=== PATIENT | female | born 1980 | race Caucasian/White ===

== ENCOUNTER 2016-12-11 14:30 | Emergency (ER) | payer OTHER ==
--- NOTE | 2016-12-11 16:52 | ED ORDER SUMMARY ---
..... Patient: ALICIA HERBERT I OrderSheet [facility] VisitID: [id number] [place] [address] 36y, F Registration Date/Time: 12/11/2016 ORDER SHEET Weight: 108.8 kg (stated) Allergies: Codeine, Metronidazole GENERAL ORDERS: UA-Culture if indicated Urgent (14:51 12/11/2016 JBoardley R.N. per protocol) (Ack 14:53 KHoerner) (14:58 JBoardley R.N.) Urine Urgent (14:51 12/11/2016 JBoardley R.N. per protocol) (Ack 14:53 KHoerner) (14:58 JBoardley R.N.) Wet Prep (Cervix) (cervix) Urgent (15:13 12/11/2016 HBivens A.R.N.P.) (Ack 15:15 KHoerner) (15:16 KWilliams R.N.) CBC w Diff Urgent (15:13 12/11/2016 HBivens A.R.N.P.) (Ack 15:15 KHoerner) (15:22 JBoardley R.N.) CMP Urgent (15:13 12/11/2016 HBivens A.R.N.P.) (Ack 15:15 KHoerner) (15:22 JBoardley R.N.) Amylase Urgent (15:13 12/11/2016 HBivens A.R.N.P.) (Ack 15:15 KHoerner) (15:22 JBoardley R.N.) Lipase Urgent (15:13 12/11/2016 HBivens A.R.N.P.) (Ack 15:15 KHoerner) (15:22 JBoardley R.N.) MEDICATION ORDERS: IV FLUIDS: IV Saline Lock (15:13 12/11/2016 HBivens A.R.N.P.) (Ack 15:14 JBoardley R.N.) (15:22 JBoardley R.N.) ORDER SHEET NOTES: [Electronically signed by Mickey Rey R.N. (19:12/11/2016)] [Electronically signed by Sarai Finnegan (:12/11/2016)] [Electronically locked/signed by Mickey Rey R.N. (:12/11/2016)]
--- NOTE | 2016-12-11 16:52 | ED NURSING NOTES ---
Clinical Report - Nurses [facility] [address] [place] [address] 12/11/2016 14:30 [id number] TRI[facility] Triage time 14:47. Acuity: LEVEL 3. Chief Complaint: FLANK PAIN. 14:47 12/11/16. 14:47 12/11/16. Alert. No acute distress. SEPSIS SCREEN: Sepsis Screen. Negative (no infection suspected/documented). AHMET COMA SCORE: [place] Coma Scale: 15- eyes open spontaneously (4); best verbal response- oriented x 4 (5); best motor response- obeys commands (6). --14:53 Mickey Rey R.N. 14:51 12/11/16. BP: 143/83. HR: 99. RR: 18. O2 saturation: 100% on room air. Temp: 97.9 F (oral). Pain level now: 12/09. --14:53 Mickey Rey R.N. ( Flank pain that started 3 days ago. Pain is greater on the right flank but also in the left flank.). --14:54 Mickey Rey R.N. Weight: 108.8 kg stated. Height/Length: 65 inches Per Patient. BMI: 40. --14:48 Mickey Rey R.N. Medications None. --14:50 Mickey Rey R.N. Medication/allergy information source: the patient. --14:53 Mickey Rey R.N. Allergies Codeine.(nausea) Metronidazole.(Anaphylaxis) --14:50 Mickey Rey R.N. History Arrived by private vehicle. Historian: patient. Accompanied by family. Primary physician ([facility]). 14:47 12/11/16. ( 3 days ago). 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 PAST MEDICAL HX: Immunizations: up-to-date. Last normal menstrual period- " I do not have one, I had an ablation completed". SOCIAL HX: Current every day light tobacco smoker (cigarette)- less than 1/2 a pack per day. Occasional alcohol use. No drug use. No recent travel. No infectious disease exposure. No known contact with a sick individual. FALL RISK ASSESSMENT: Fall risk assessment completed. No fall risk identified. NUTRITIONAL RISK ASSESSMENT: The nutritional risk assessment revealed no deficiencies. FUNCTIONAL ASSESSMENT: Functional assessment: no impairments noted. LEARNING NEEDS ASSESSMENT: The learning needs assessment revealed no barriers. SKIN INTEGRITY ASSESSMENT: Skin integrity risk assessment completed. No skin integrity risk identified. --14:53 Mickey Rey R.N. PROBLEMS: Hypertension. Dental Pain. Nausea. Hyperlipidemia. Hypercholesterolemia. Immunizations. LNMP - Last Normal Menstrual Period. Polycystic Ovary Disease. Chronic Back Pain. --14:50 Mickey Rey R.N. ADDITIONAL SURGERIES: . --14:50 Mickey Rey R.N. Assessment 14:47 12/11/16. --14:53 Mickey Rey R.N. Interventions 14:47 12/11/16. 14:47 12/11/16. ID and allergy band on patient. To treatment room. --14:53 Mickey Rey R.N. PHYSICAL ASSESSMENT 14:49 12/11/16. Ambulatory to room. GENERAL / NEURO / PSYCH: Alert. Oriented X 4. Appears in no acute distress. RESPIRATORY: Respirations not labored. CVS: Capillary refill less than 2 seconds. SKIN: Skin is warm and dry. --14:49 Mickey Rey R.N. NURSING PROGRESS NOTES 14:49 12/11/16. The plan of care for this patient has been created. Patient gowned. Head of bed elevated. Reassurance given. Two patient identifiers checked. Call light placed in reach. Side rails up x 2. Bed placed in lowest position. Brakes of bed on. --14:49 Mickey Rey R.N. PELVIC EXAM: Pelvic exam performed by NATIONAL VAN OWNER OPERATOR. Assisted by one nurse. Preparation: pelvic tray; patient placed in lithotomy position. Procedure: speculum and bimanual exam. Specimens collected and sent to lab: wet prep. No vaginal discharge noted. No vaginal bleeding noted. Status post-procedure: she was stable. Total time of assist / procedure: 15 minutes. --15:15 Oleg Mckenzie R.N. 15:17 12/11/2016 Site #1 started via IV in the right antecubital space with an 20g angiocath, with aseptic technique and good blood return; one attempt. Blood drawn: rainbow set. Labeled in the presence of the patient and sent to the lab. Saline lock flushed with 10 mL saline. --15:22 Mickey Rey R.N. 15:36 12/11/16. Patient informed about reason for wait and about plan of care. Patient waiting for lab results. --15:36 Mickey Rey R.N. 15:36 12/11/16. BP: 134/82. HR: 88. RR: 14. O2 saturation: 100%. --15:37 Mickey Rey R.N. 15:37 12/11/16. --15:37 Mickey Rey R.N. 17:07 12/11/2016 Site #1 removed upon discharge. Bandaid applied. --17:07 Tanisha Chou R.N. DISPOSITION / DISCHARGE Departure time: 17:Dec 11 2016. Condition at departure: stable. The goals identified in the patient's plan of care were met. No learning barriers present. Discharge instructions provided and reviewed with the patient. Reviewed medication(s) information. Prescription(s) given to the patient. Patient verbalized understanding. Written instructions provided in British. The patient was discharged by the nurse practitioner. She was discharged home and accompanied by family. She left the Emergency Department ambulatory and via private vehicle. ( pt dc only by this RN, iv d/c'd intact. pt ambulated to lobby with steady gait.). --17:06 Tanisha Chou R.N. 17:05 12/11/16. BP: 133/71. HR: 82. RR: 17. O2 saturation: 100%. Temp: 98.0 F. Pain level now 5/10. --17:06 Tanisha Chou R.N. Locked/Released at 12/11/2016 19:00 by Mickey Rey R.N.
--- NOTE | 2016-12-11 16:52 | ED CLINICAL REPORT ---
Clinical Report - Physicians/Mid Levels [facility] [address] [place] [address] 12/11/2016 14:30 Patient: ALICIA HERBERT I Time Seen: 14:54; initial patient contact, initial documentation, patient care assumed. Arrived- By private vehicle. Historian- patient. HISTORY OF PRESENT ILLNESS Chief Complaint: FLANK PAIN. It is described as "pain", sharp, stabbing and cramping. No radiation. It is described as located in the right flank and the left flank. At its maximum, severity described as moderate. When seen in the E.D., severity described as moderate. Modifying factors. Not worsened by anything. Not relieved by anything. This started about 3 days ago and is still present. It was abrupt in onset and has been constant. No nausea, loss of appetite, vomiting or diarrhea. No additional abdominal pain. No recent travel. Similar symptoms previously: Occasionally, as bad. ( feels like bladder or kidney pain where there is an infection). Recent medical care: Not recently seen/assessed. REVIEW OF SYSTEMS No constipation, black stools, hematemesis, difficulty with urination or pain with urination. No urinary frequency, bloody stools, fever, chest pain or difficulty breathing. She has missed periods. Denies current . c/o some vaginal dc, more than her normal, doens't know the color, maybe white. All systems otherwise negative, except as recorded above. PAST HISTORY See nurses notes. PROBLEMS: Hypertension. Dental Pain. Nausea. Hyperlipidemia. Hypercholesterolemia. Immunizations. LNMP - Last Normal Menstrual Period. Polycystic Ovary Disease. Chronic Back Pain. --14:50 Mickey Rey R.N. ADDITIONAL SURGERIES: . --14:50 Mickey Rye R.N. SOCIAL HISTORY Light tobacco smoker. Occasional alcohol use. No drug use. No recent travel. Is a local resident. FAMILY HISTORY Negative. ADDITIONAL NOTES The nursing notes have been reviewed with agreement regarding the chief complaint, HPI, ROS, PMH and patient medications and allergies. PHYSICAL EXAM Vital Signs: 12/11/2016 14:52 BP: 143/83. HR: 99. RR: 18. O2 saturation: 100%. Temp: 97.9 F. Pain level now: 10. Have been reviewed as normal and appear to be correct. Appearance: Alert. Oriented X3. No acute distress. Eyes: Pupils equal, round and reactive to light. Eyes normal inspection. Neck: Normal inspection. Neck supple. CVS: Normal heart rate and rhythm. Heart sounds normal. Pulses normal. Respiratory: No respiratory distress. Breath sounds normal. Chest nontender. Abdomen: Soft and nontender. Bowel sounds normal. No organomegaly. No mass. Mildly obese. Back: Normal inspection. : Normal external exam. Speculum exam normal. Bimanual exam normal. (BARRY Luo as environmental research project manager). Skin: Skin warm and dry. Normal skin color. No rash. Normal skin turgor. Extremities: Extremities exhibit normal ROM. No lower extremity edema. Neuro: Oriented X 3. No motor deficit. No sensory deficit. LABS, X-RAYS, AND EKG Laboratory Tests: UA-Culture if indicated: (SVITLANA: 12/11/2016 14:45) ( [facility] [place]11[facility] 15:20) Final results Test Result Flag Units (Reference) URINE COLOR STRAW URINE APPEARANCE CLEAR URINE GLUCOSE NEGATIVE (NEGATIVE) URINE BILIRUBIN NEGATIVE (NEGATIVE) URINE KETONE NEGATIVE (NEGATIVE) URINE SPECIFIC GRAVITY <= 1.005 L (1.010-1.030) URINE PH 5.5 (5.0-8.0) URINE PROTEIN NEGATIVE (NEGATIVE) URINE UROBILINOGEN 0.2 EU/dL (0.2-1.0) URINE NITRITE NEGATIVE (NEGATIVE) URINE BLOOD NEGATIVE (NEGATIVE) URINE LEUK ESTERASE NEGATIVE (NEGATIVE) URINE RBC NONE SEEN rbc/hpf (0-1) URINE WBC NONE SEEN wbc/hpf (0-1) URINE EPITHELIAL CELLS 1-3 EPI/hpf (0-5) URINE BACTERIA NONE SEEN (NONE SEEN) URINE COMMENT CULT NOT INDICATED URINE CULTURES ARE SET-UP BASED ON THE FOLLOWING CRITERIA:POSITIVE NITRITEPOSITIVE LEUKOCYTE ESTERASEGREATER THAN 10 WHITE BLOOD CELLSMODERATE (2+) OR GREATER BACTERIA Urine: (SVITLANA: 12/11/2016 14:45) ( MsgRcvd 12/11/2016 15:00) Final results Test Result Flag Units (Reference) URINE NEGATIVE CBC w Diff: (SVITLANA: 12/11/2016 15:15) ( MsgRcvd 12/11/2016 15:40) Final results Test Result Flag Units (Reference) WHITE BLOOD COUNT 10.9 K/uL (4.5-11.5) RED BLOOD COUNT 4.50 M/uL (4.00-5.20) HEMOGLOBIN 14.8 gm/dL (12.0-16.0) HEMATOCRIT 43.1 % (36.0-46.0) MEAN CELL VOLUME 96 fL (80-100) MEAN CORPUSCULAR HGB 33 pg (26-34) MEAN CORPUSCULAR HGB CONC 34 g/dL (31-37) RED CELL DISTRIBUTION WIDTH 13.1 % (11.6-14.8) PLATELET COUNT 316 K/uL (150-400) NEUTROPHIL % 65.6 % (50-75) LYMPH % 27.3 % (25-40) MONO % 5.2 % (3-14) EOSINOPHIL % 1.5 % (0-4) BASOPHIL % 0.4 % (0-2) CMP: (SVITLANA: 12/11/2016 15:15) ( MsgRcvd 12/11/2016 15:53) Final results Test Result Flag Units (Reference) GLUCOSE 94 mg/dL (70-110) BUN 10 mg/dL (7-18) CREATININE 0.8 mg/dL (0.6-1.3) Estimated GFR >60 mL/min Estimated GFR- >60 mL/min Note: Persistent reduction over 3 months in eGFR<60 mL/min/1.73 m2 defines CKD. Patients with eGFR values>=60 mL/min/1.73 m2 may also have CKD if evidence ofpersistent proteinuria. Additional information may be foundat www.kidney.org. SODIUM 139 mmol/L (136-145) POTASSIUM 3.8 mmol/L (3.5-5.1) CHLORIDE 102 mmol/L (98-107) CARBON DIOXIDE 26 mmol/L (21-32) CALCIUM 9.3 mg/dL (8.5-10.1) TOTAL PROTEIN 7.8 g/dL (6.4-8.2) ALBUMIN 3.9 g/dL (3.3-5.0) BILIRUBIN, TOTAL 0.4 mg/dL (0.0-1.0) ALKALINE PHOSPHATASE 74 U/L (46-116) AST (SGOT) 24 U/L (15-37) ALT (SGPT) 54 U/L (12-78) LIPASE 127 U/L (73-393) AMYLASE 45 U/L (25-115) Wet Prep: (SVITLANA: 12/11/2016 15:11) ( MsgRcvd 12/11/2016 16:07) Final results SPECIMEN DESCRIPTION: CERVIX Test Result Flag Units (Reference) WET MOUNT CLUE CELLS:: FEW * EPITHELIAL CELLS: FEW -- SOURCE?: CERVIX WHITE BLOOD CELLS: FEW TRICHOMONAS:: NONE -- YEAST:: NONE . PROGRESS AND PROCEDURES Patient counseled in person regarding the patient's stable condition, test results and diagnosis. 16:46. Differential Diagnosis: I considered diverticulitis, colon cancer, obstipation, urinary tract infection, cystitis, ureterolithiasis, ovarian cyst, ovarian torsion, , ectopic , pelvic inflammatory disease, pelvic abscess, endometriosis and viral syndrome as a possible cause of abdominal pain in this patient. This is a partial list of diagnoses considered. Above considerations are based on history, physical exam and laboratory data. Differential diagnosis was discussed with patient. Disposition: Discharged home in good and improved condition (16:51). Condition: good and stable. CLINICAL IMPRESSION Acute mild bacterial vaginitis INSTRUCTIONS Warnings: GENERAL WARNINGS: Return or contact your physician immediately if your condition worsens or changes unexpectedly, if not improving as expected, or if other problems arise. SPECIFICALLY, return if you develop pain in the abdomen or pelvis, fever, the inability to keep fluids down, blood in vomitus, blood in diarrhea, fainting, lightheadedness or vaginal bleeding. Prescription Medications: Ultram 50 mg tablets: take 1-2 orally every 6 hours as needed for pain. Dispense twenty (20). No refills. Substitution is permissible. Doxycycline 100 mg: Take 1 capsule orally every 12 hours for 10 days. No refill. Follow-up: Follow up with your doctor in about three days even if well. Summary of care provided to patient. Understanding of the discharge instructions verbalized. (Electronically signed by Sarai Finnegan A.R.N.P. 12/11/2016 22:00)
--- NOTE | 2016-12-11 16:52 | ED NURSING NOTES ---
Clinical Report - Nurses [facility] [address] [place] [address] 12/11/2016 14:30 [id number] Triage time 14:47. Acuity: LEVEL 3. Chief Complaint: FLANK PAIN. 14:47 12/11/16. 14:47 12/11/16. Alert. No acute distress. SEPSIS SCREEN: Sepsis Screen. Negative (no infection suspected/documented). AHMET COMA SCORE: [place] Coma Scale: 15- eyes open spontaneously (4); best verbal response- oriented x 4 (5); best motor response- obeys commands (6). --14:53 Mickey Rey R.N. 14:51 12/11/16. BP: 143/83. HR: 99. RR: 18. O2 saturation: 100% on room air. Temp: 97.9 F (oral). Pain level now: 12/09. --14:53 Mickey Rey R.N. ( Flank pain that started 3 days ago. Pain is greater on the right flank but also in the left flank.). --14:54 Mickey Rey R.N. Weight: 108.8 kg stated. Height/Length: 65 inches Per Patient. BMI: 40. --14:48 Mickey Rey R.N. Medications None. --14:50 Mickey Rey R.N. Medication/allergy information source: the patient. --14:53 Mickey Rey R.N. Allergies Codeine.(nausea) Metronidazole.(Anaphylaxis) --14:50 Mickey Rey R.N. History Arrived by private vehicle. Historian: patient. Accompanied by family. Primary physician ([facility] [place]). 14:47 12/11/16. ( 3 days ago). 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 PAST MEDICAL HX: Immunizations: up-to-date. Last normal menstrual period- " I do not have one, I had an ablation completed". SOCIAL HX: Current every day light tobacco smoker (cigarette)- less than 1/2 a pack per day. Occasional alcohol use. No drug use. No recent travel. No infectious disease exposure. No known contact with a sick individual. FALL RISK ASSESSMENT: Fall risk assessment completed. No fall risk identified. NUTRITIONAL RISK ASSESSMENT: The nutritional risk assessment revealed no deficiencies. FUNCTIONAL ASSESSMENT: Functional assessment: no impairments noted. LEARNING NEEDS ASSESSMENT: The learning needs assessment revealed no barriers. SKIN INTEGRITY ASSESSMENT: Skin integrity risk assessment completed. No skin integrity risk identified. --14:53 Mickey Rey R.N. PROBLEMS: Hypertension. Dental Pain. Nausea. Hyperlipidemia. Hypercholesterolemia. Immunizations. LNMP - Last Normal Menstrual Period. Polycystic Ovary Disease. Chronic Back Pain. --14:50 Mickey Rey R.N. ADDITIONAL SURGERIES: . --14:50 Mickey Rey R.N. Assessment 14:47 12/11/16. --14:53 Mickey Rey R.N. Interventions 14:47 12/11/16. 14:47 12/11/16. ID and allergy band on patient. To treatment room. --14:53 Mickey Rey R.N. PHYSICAL ASSESSMENT 14:49 12/11/16. Ambulatory to room. GENERAL / NEURO / PSYCH: Alert. Oriented X 4. Appears in no acute distress. RESPIRATORY: Respirations not labored. CVS: Capillary refill less than 2 seconds. SKIN: Skin is warm and dry. --14:49 Mickey Rey R.N. NURSING PROGRESS NOTES 14:49 12/11/16. The plan of care for this patient has been created. Patient gowned. Head of bed elevated. Reassurance given. Two patient identifiers checked. Call light placed in reach. Side rails up x 2. Bed placed in lowest position. Brakes of bed on. --14:49 Mickey Rey R.N. PELVIC EXAM: Pelvic exam performed by FINANCIAL UNDERWRITER. Assisted by one nurse. Preparation: pelvic tray; patient placed in lithotomy position. Procedure: speculum and bimanual exam. Specimens collected and sent to lab: wet prep. No vaginal discharge noted. No vaginal bleeding noted. Status post-procedure: she was stable. Total time of assist / procedure: 15 minutes. --15:15 Oleg Mckenzie R.N. 15:17 12/11/2016 Site #1 started via IV in the right antecubital space with an 20g angiocath, with aseptic technique and good blood return; one attempt. Blood drawn: rainbow set. Labeled in the presence of the patient and sent to the lab. Saline lock flushed with 10 mL saline. --15:22 Mickey Rey R.N. 15:36 12/11/16. Patient informed about reason for wait and about plan of care. Patient waiting for lab results. --15:36 Mickey Rey R.N. 15:36 12/11/16. BP: 134/82. HR: 88. RR: 14. O2 saturation: 100%. --15:37 Mickey Rey R.N. 15:37 12/11/16. --15:37 Mickey Rey R.N. 17:07 12/11/2016 Site #1 removed upon discharge. Bandaid applied. --17:07 Tanisha Chou R.N. DISPOSITION / DISCHARGE Departure time: 17:Dec 11 2016. Condition at departure: stable. The goals identified in the patient's plan of care were met. No learning barriers present. Discharge instructions provided and reviewed with the patient. Reviewed medication(s) information. Prescription(s) given to the patient. Patient verbalized understanding. Written instructions provided in Palestinian. The patient was discharged by the nurse practitioner. She was discharged home and accompanied by family. She left the Emergency Department ambulatory and via private vehicle. ( pt dc only by this RN, iv d/c'd intact. pt ambulated to lobby with steady gait.). --17:06 Tanisha Chou R.N. 17:05 12/11/16. BP: 133/71. HR: 82. RR: 17. O2 saturation: 100%. Temp: 98.0 F. Pain level now 5/10. --17:06 Tanisha Chou R.N. Locked/Released at 12/11/2016 19:00 by Mickey Rey R.N.
--- NOTE | 2016-12-11 16:52 | ED ORDER SUMMARY ---
..... Patient: ALICIA HERBERT I OrderSheet [facility] VisitID: [id number] [place] [address] 36y, F Registration Date/Time: 12/11/2016 ORDER SHEET Weight: 108.8 kg (stated) Allergies: Codeine, Metronidazole GENERAL ORDERS: UA-Culture if indicated Urgent (14:51 12/11/2016 JBoardley R.N. per protocol) (Ack 14:53 KHoerner) (14:58 JBoardley R.N.) Urine Urgent (14:51 12/11/2016 JBoardley R.N. per protocol) (Ack 14:53 KHoerner) (14:58 JBoardley R.N.) Wet Prep (Cervix) (cervix) Urgent (15:13 12/11/2016 HBivens A.R.N.P.) (Ack 15:15 KHoerner) (15:16 KWilliams R.N.) CBC w Diff Urgent (15:13 12/11/2016 HBivens A.R.N.P.) (Ack 15:15 KHoerner) (15:22 JBoardley R.N.) CMP Urgent (15:13 12/11/2016 HBivens A.R.N.P.) (Ack 15:15 KHoerner) (15:22 JBoardley R.N.) Amylase Urgent (15:13 12/11/2016 HBivens A.R.N.P.) (Ack 15:15 KHoerner) (15:22 JBoardley R.N.) Lipase Urgent (15:13 12/11/2016 HBivens A.R.N.P.) (Ack 15:15 KHoerner) (15:22 JBoardley R.N.) MEDICATION ORDERS: IV FLUIDS: IV Saline Lock (15:13 12/11/2016 HBivens A.R.N.P.) (Ack 15:14 JBoardley R.N.) (15:22 JBoardley R.N.) ORDER SHEET NOTES: [Electronically signed by Mickey Rey R.N. (19:12/11/2016)] [Electronically signed by Sarai Finnegan (:12/11/2016)] [Electronically locked/signed by Mickey Rey R.N. (:12/11/2016)]
--- NOTE | 2016-12-11 22:00 | ED MED RECONCILIATION SUMMARY ---
Patient: ALICIA HERBERT I Medication Reconciliation Report [facility] VisitID: [id number] [address] [place] [address] 36y, F Registration Date/Time: 12/11/2016 Weight: 108.8 kg Height/Length: 65 in. BMI: 40.0 ALLERGIES: Codeine, Metronidazole The patient's Home Medications are listed below: NONE. The source(s) of the original Home Medication information: patient The following Medications were given to the patient in the Emergency Department: None. The following Medications were prescribed to the patient: Ultram 50 mg tablets: take 1-2 orally every 6 hours as needed for pain. Dispense twenty (20). No refills. Substitution is permissible. -- Sarai Finnegan, Sloane.R.N.P. Doxycycline 100 mg: Take 1 capsule orally every 12 hours for 10 days. No refill. -- Sarai Finnegan A.R.N.P.
--- NOTE | 2016-12-11 22:00 | ED MAR SUMMARY ---
..... Medication Administration Record Located Within [facility] [address] [place], [place] [id number] Patient: ALICIA HERBERT I Visit ID: [id number] 36y, F Weight: 108.8 kg Height/Length: 65 in BMI: 40 ALLERGIES: Codeine, Metronidazole
--- NOTE | 2016-12-11 22:00 | ED MAR SUMMARY ---
..... Medication Administration Record [facility] [address] [place], [place] [id number] Patient: ALICIA HERBERT I Visit ID: [id number] 36y, F Weight: 108.8 kg Height/Length: 65 in BMI: 40 ALLERGIES: Codeine, Metronidazole
--- NOTE | 2016-12-11 22:00 | ED MED RECONCILIATION SUMMARY ---
Patient: ALICIA HERBERT I Medication Reconciliation Report [facility] VisitID: [id number] [address] [place] [address] 36y, F Registration Date/Time: 12/11/2016 Weight: 108.8 kg Height/Length: 65 in. BMI: 40.0 ALLERGIES: Codeine, Metronidazole The patient's Home Medications are listed below: NONE. The source(s) of the original Home Medication information: patient The following Medications were given to the patient in the Emergency Department: None. The following Medications were prescribed to the patient: Ultram 50 mg tablets: take 1-2 orally every 6 hours as needed for pain. Dispense twenty (20). No refills. Substitution is permissible. -- Sarai Finnegan, Sloane.R.N.P. Doxycycline 100 mg: Take 1 capsule orally every 12 hours for 10 days. No refill. -- Sarai Finnegan A.R.N.P.
--- NOTE | 2016-12-11 22:00 | ED DISCHARGE INSTRUCTIONS ---
Patient: ALICIA HERBERT I General Instructions [facility] VisitID: [id number] [place] [address] 36y, F Registration Date/Time: 12/11/2016 Acute mild bacterial vaginitis INSTRUCTIONS Warnings: GENERAL WARNINGS: Return or contact your physician immediately if your condition worsens or changes unexpectedly, if not improving as expected, or if other problems arise. SPECIFICALLY, return if you develop pain in the abdomen or pelvis, fever, the inability to keep fluids down, blood in vomitus, blood in diarrhea, fainting, lightheadedness or vaginal bleeding. Prescription Medications: Ultram 50 mg tablets: take 1-2 orally every 6 hours as needed for pain. Dispense twenty (20). No refills. Substitution is permissible. Doxycycline 100 mg: Take 1 capsule orally every 12 hours for 10 days. No refill. Follow-up: Follow up with your doctor in about three days even if well. Summary of care provided to patient. Understanding of the discharge instructions verbalized. ADDITIONAL INFORMATION Bacterial Vaginosis You have a bacterial infection of the vagina called bacterial vaginosis (BV). It may also be called gardnerella or non-specific vaginitis. BV occurs when the "bad" bacteria outnumber the "good" bacteria that are normally present in the vagina. Symptoms include foul-smelling vaginal discharge (most noticeable after vaginal intercourse). There may also be burning with urination. The burning is caused as the urine passes over the inflamed outer vaginal area. The cause of bacterial vaginosis is not certain. However, your risk is higher if you recently began a new sexual relationship, or have had many sex partners in the past. Your risk is also higher if you douche often. While bacterial vaginosis most often occurs only in sexually active women, this is not a true sexually transmitted disease. You did not get this from your partner. You cannot give it to your partner. The infection may be related to temporary changes in the pH of vaginal fluids after being exposed to semen. Home Care: Keep the genital area clean and free of discharge. Do this by wearing an absorbent sanitary pad and changing it often. Shower daily. When you shower, clean the outer vaginal area with plain soap and water. Do not douche during treatment unless advised to do so by your doctor. Routine douching after treatment is no longer recommended to clean the vagina. It raises your risk of vaginal infection and pelvic inflammatory disease. Avoid having sex until you have finished all antibiotic medicine and all symptoms have gone away. Wear cotton underwear or cotton-lined panty hose. Dont wear pants that are too tight. Limiting the number of sex partners you have lowers your risk of this and other vaginal infections, STDs, and HIV. Take all medicine as directed until it is gone, even if you are feeling better. If you dont do this, symptoms might return. Follow Up with your doctor if symptoms dont go away after the medicine is finished. Get Prompt Medical Attention if any of the following occur: Fever of 100.4F (38C) or higher, or as directed by your healthcare provider Lower abdominal pain Rash or joint pain Painful sores around the outer vaginal area or on your partners penis Tramadol Hydrochloride Oral tablet What is this medicine? TRAMADOL (TRA ma dole) is a pain reliever. It is used to treat moderate to severe pain in adults. How should I use this medicine? Take this medicine by mouth with a full glass of water. Follow the directions on the prescription label. If the medicine upsets your stomach, take it with food or milk. Do not take more medicine than you are told to take. Talk to your utility forester regarding the use of this medicine in children. Special care may be needed. What side effects may I notice from receiving this medicine? Side effects that you should report to your doctor or health health careers instructor as soon as possible: allergic reactions like skin rash, itching or hives, swelling of the face, lips, or tongue breathing difficulties, wheezing confusion itching light headedness or fainting spells redness, blistering, peeling or loosening of the skin, including inside the mouth seizures Side effects that usually do not require medical attention (report to your doctor or health health careers instructor if they continue or are bothersome): constipation dizziness drowsiness headache nausea, vomiting What may interact with this medicine? Do not take this medicine with any of the following medications: MAOIs like Carbex, Eldepryl, Marplan, Nardil, and Parnate This medicine may also interact with the following medications: alcohol or medicines that contain alcohol antihistamines benzodiazepines bupropion carbamazepine or oxcarbazepine clozapine cyclobenzaprine digoxin furazolidone linezolid medicines for depression, anxiety, or psychotic disturbances medicines for migraine headache like almotriptan, eletriptan, frovatriptan, naratriptan, rizatriptan, sumatriptan, zolmitriptan medicines for pain like pentazocine, buprenorphine, butorphanol, meperidine, nalbuphine, and propoxyphene medicines for sleep muscle relaxants naltrexone phenobarbital phenothiazines like perphenazine, thioridazine, chlorpromazine, mesoridazine, fluphenazine, prochlorperazine, promazine, and trifluoperazine procarbazine warfarin What if I miss a dose? If you miss a dose, take it as soon as you can. If it is almost time for your next dose, take only that dose. Do not take double or extra doses. Where should I keep my medicine? Keep out of the reach of children. Store at room temperature between 15 and 30 degrees C (59 and 86 degrees F). Keep container tightly closed. Throw away any unused medicine after the expiration date. What should I tell my health care provider before I take this medicine? They need to know if you have any of these conditions: brain tumor depression drug abuse or addiction head injury if you frequently drink alcohol containing drinks kidney disease or trouble passing urine liver disease lung disease, asthma, or breathing problems seizures or epilepsy suicidal thoughts, plans, or attempt; a previous suicide attempt by you or a family member an unusual or allergic reaction to tramadol, codeine, other medicines, foods, dyes, or preservatives or trying to get breast-feeding What should I watch for while using this medicine? Tell your doctor or health health careers instructor if your pain does not go away, if it gets worse, or if you have new or a different type of pain. You may develop tolerance to the medicine. Tolerance means that you will need a higher dose of the medicine for pain relief. Tolerance is normal and is expected if you take this medicine for a long time. Do not suddenly stop taking your medicine because you may develop a severe reaction. Your body becomes used to the medicine. This does NOT mean you are addicted. Addiction is a behavior related to getting and using a drug for a non-medical reason. If you have pain, you have a medical reason to take pain medicine. Your doctor will tell you how much medicine to take. If your doctor wants you to stop the medicine, the dose will be slowly lowered over time to avoid any side effects. You may get drowsy or dizzy. Do not drive, use machinery, or do anything that needs mental alertness until you know how this medicine affects you. Do not stand or sit up quickly, especially if you are an older patient. This reduces the risk of dizzy or fainting spells. Alcohol can increase or decrease the effects of this medicine. Avoid alcoholic drinks. You may have constipation. Try to have a bowel movement at least every 2 to 3 days. If you do not have a bowel movement for 3 days, call your doctor or health health careers instructor. Your mouth may get dry. Chewing sugarless gum or sucking hard candy, and drinking plenty of water may help. Contact your doctor if the problem does not go away or is severe. Doxycycline Monohydrate Oral tablet What is this medicine? DOXYCYCLINE (dox maye zheng) is a tetracycline antibiotic. It kills certain bacteria or stops their growth. It is used to treat many kinds of infections, like dental, skin, respiratory, and urinary tract infections. It also treats acne, Lyme disease, malaria, and certain sexually transmitted infections. How should I use this medicine? Take this medicine by mouth with a full glass of water. Follow the directions on the prescription label. It is best to take this medicine without food, but if it upsets your stomach take it with food. Take your medicine at regular intervals. Do not take your medicine more often than directed. Take all of your medicine as directed even if you think you are better. Do not skip doses or stop your medicine early. Talk to your utility forester regarding the use of this medicine in children. Special care may be needed. While this drug may be prescribed for children as young as 8 years old for selected conditions, precautions do apply. What side effects may I notice from receiving this medicine? Side effects that you should report to your doctor or health health careers instructor as soon as possible: allergic reactions like skin rash, itching or hives, swelling of the face, lips, or tongue difficulty breathing fever itching in the rectal or genital area pain on swallowing redness, blistering, peeling or loosening of the skin, including inside the mouth severe stomach pain or cramps unusual bleeding or bruising unusually weak or tired yellowing of the eyes or skin Side effects that usually do not require medical attention (report to your doctor or health health careers instructor if they continue or are bothersome): diarrhea loss of appetite nausea, vomiting What may interact with this medicine? antacids barbiturates control pills bismuth subsalicylate carbamazepine methoxyflurane other antibiotics phenytoin vitamins that contain iron warfarin What if I miss a dose? If you miss a dose, take it as soon as you can. If it is almost time for your next dose, take only that dose. Do not take double or extra doses. Where should I keep my medicine? Keep out of the reach of children. Store at room temperature, below 30 degrees C (86 degrees F). Protect from light. Keep container tightly closed. Throw away any unused medicine after the expiration date. Taking this medicine after the expiration date can make you seriously ill. What should I tell my health care provider before I take this medicine? They need to know if you have any of these conditions: liver disease long exposure to sunlight like working outdoors stomach problems like colitis an unusual or allergic reaction to doxycycline, tetracycline antibiotics, other medicines, foods, dyes, or preservatives or trying to get breast-feeding What should I watch for while using this medicine? Tell your doctor or health health careers instructor if your symptoms do not improve. Do not treat diarrhea with over the counter products. Contact your doctor if you have diarrhea that lasts more than 2 days or if it is severe and watery. Do not take this medicine just before going to bed. It may not dissolve properly when you lay down and can cause pain in your throat. Drink plenty of fluids while taking this medicine to also help reduce irritation in your throat. This medicine can make you more sensitive to the sun. Keep out of the sun. If you cannot avoid being in the sun, wear protective clothing and use sunscreen. Do not use sun lamps or tanning beds/booths. control pills may not work properly while you are taking this medicine. Talk to your doctor about using an extra method of control. If you are being treated for a sexually transmitted infection, avoid sexual contact until you have finished your treatment. Your sexual partner may also need treatment. Avoid antacids, aluminum, calcium, magnesium, and iron products for 4 hours before and 2 hours after taking a dose of this medicine. If you are using this medicine to prevent malaria, you should still protect yourself from contact with mosquitos. Stay in screened-in areas, use mosquito nets, keep your body covered, and use an insect repellent. You have been given the following additional information: Vaginitis, Bacterial Tramadol Hydrochloride Oral tablet Doxycycline Monohydrate Oral tablet (Electronically signed by Sarai Finnegan A.R.N.P. 12/11/2016 22:00)
== END 2016-12-11 17:03 | disposition home or self-care (01) ==
LOC: ED SRH 14:30
DX: N76.0 Acute vaginitis (principal); I10 Essential (primary) hypertension; F17.210 Nicotine dependence, cigarettes, uncomplicated; Z88.5 Allergy status to narcotic agent
CPT/HCPCS: 90004; 90100; 90195; 92235; 92530; 93070; 95059